=== PATIENT | male | born 1995 | race African-American/Black ===

== ENCOUNTER 2017-01-26 17:15 | Emergency (ER) | payer SELFPAY ==
[2017-01-26] MEDS ORDERED: KETOROLAC TROMETHAMINE 60 MG/2 ML SDV IM ONE (17:56)
[2017-01-26] MEDS ORDERED: DIPHENHYDRAMINE HCL 50 MG/ML VIAL IM ONE (17:56)
[2017-01-26] MEDS ORDERED: METOCLOPRAMIDE HCL INJ/PF 10 MG/2 ML SDV IM ONE (17:56)
--- NOTE | 2017-01-26 18:02 | ER Document Report ---
ED Headache - General Chief Complaint: Headache Stated Complaint: BODY ACHES/HEADACHE Mode of Arrival: Ambulatory Information source: Patient TRAVEL OUTSIDE OF THE [place] IN LAST 30 DAYS: No - HPI Patient complains to provider of: Headache Notes: Patient arrives with complaints of intermittent headache for the last 3-4 days. Patient states that he gets headaches often. This feels like his typical headaches. Complains of a moderate headache at this time. He denies any recent head injuries. He denies any blood thinners. He denies any blurred or loss vision. No fever. No neck stiffness. Does complain of some mild photophobia as well as some nausea and vomiting over the last few days intermittently as well. He denies any IV drug use. Complains of some mild generalized body aches at times as well. Patient has a known history of hypertension. He states that he was on blood pressure medication in the past, he cannot member when he was taking, but has not seen a family doctor and is currently on no blood pressure medication at this time. He denies any shortness of breath. Denies any other complaints at this time. - Related Data Allergies/Adverse Reactions: No Known Allergies Allergy (Verified 01/26/17 17:34) Past Medical History - Social History Smoking Status: Never Smoker Chew tobacco use (# tins/day): No Frequency of alcohol use: Social Drug Abuse: None Family History: Reviewed & Not Pertinent Patient has suicidal ideation: No Patient has homicidal ideation: No - Past Medical History Cardiac Medical History: Reports: Hx Hypertension Neurological Medical History: Reports: Hx Migraine Renal/ Medical History: Denies: Hx Peritoneal Dialysis Review of Systems - Review of Systems -: Yes All other systems reviewed and negative Physical Exam - Vital signs Vitals: Temp Pulse Resp BP Pulse Ox 98.3 F 77 18 153/79 H 99 01/26/17 17:34 01/26/17 17:34 01/26/17 17:34 01/26/17 17:34 01/26/17 17:34 - Notes Notes: GENERAL: alert, cooperative, nontoxic, no distress. HEAD: normocephalic, atraumatic EYES: conjunctiva pink without discharge, no external redness or swelling. Pupils are equal, round, reactive to light. EARS: no external swelling, no external redness NOSE: atraumatic, no external swelling MOUTH/THROAT: mucous membranes moist and pink, posterior pharynx without erythema, swelling, exudate. No trismus or drooling. NECK: soft, supple, full range of motion, no meningismus. CHEST: no distress, lungs clear and equal throughout. No wheezing, rales, rhonchi. CARDIAC: regular rate and rhythm, no murmur, normal capillary refill, normal pulses. No peripheral edema noted. BACK: full range of motion, no CVA tenderness. EXTREMITIES: full range of motion of all extremities. No redness, no swelling. NEURO: alert and oriented &O-3, cranial nerves II through XII are grossly intact. Upper and lower extremities are equal throughout. Normal sensation. No focal deficits, full range of motion of all extremitiesx Normal finger to nose. Decreased ability to raise his right eyebrow due to prior injury and scar. PYSCH: appropriate mood, affect. Patient is cooperative. SKIN: pink, warm, dry, no rash. Course - Re-evaluation Re-evalutation: 01/26/17 18:00 Patient nontoxic appearing with stable vitals. Patient doesn't have mild hypertension at this time. I discussed the importance of getting established with a primary care physician in order to get restarted on blood pressure medication and to monitor his blood pressure. This certainly could be the source of his intermittent headaches. His headaches are intermittent, denies any injury, is on no blood thinners, has a normal neurological exam, no fever, no signs of meningitis. Does not sudden onset thunderclap type headache. No sign or risk of epidural abscess/bleed. Patient will be given a shot of Toradol , Reglan, Benadryl and emergency department and discharged home with instructions to get established with primary care at the next label appointment in order to get his blood pressure under control. Patient verbalized understanding of this will be discharged. 01/26/17 18:01 The patient is noted to have elevated blood pressure during today's emergency department visit. The patient was informed of this finding. The patient was instructed that this may be related to pre-hypertension and requires further evaluation with a primary care provider. The patient has no hypertensive symptoms at this time. The patient's emergency department workup and current diagnosis were explained to the patient and or family. Follow-up instructions were provided. Medications if prescribed were discussed. Instructions for when to return to the emergency department including specific worrisome symptoms were discussed with the patient and/or family. - Vital Signs Vital signs: Temp Pulse Resp BP Pulse Ox 98.3 F 77 18 153/79 H 99 01/26/17 17:34 01/26/17 17:34 01/26/17 17:34 01/26/17 17:34 01/26/17 17:34 Discharge - Discharge Clinical Impression: Headache Qualifiers: Headache type: unspecified Headache chronicity pattern: episodic headache Intractability: not intractable Qualified Code(s): R51 - Headache Hypertension Qualifiers: Hypertension type: essential hypertension Qualified Code(s): I10 - Essential ( primary) hypertension Condition: Stable Disposition: HOME, SELF-CARE Instructions: Headache ([facility]) Additional Instructions: Take medications as prescribed. We need to get established with her primary care physician order to get her blood pressure under control. Follow-up for increased pain, fever, neck stiffness, persistent vomiting, numbness, tingling, weakness and once on her body compared to the other, or any further concerns. Prescriptions: Diclofenac Sodium [Voltaren] 75 mg PO BID #20 tablet.dr Forms: Elevated Blood Pressure
[2017-01-26 18:31] VITALS: BP 162/82
== END 2017-01-26 18:31 | disposition home or self-care (01) ==
LOC: ER 17:15
DX: R51 Headache (principal); I10 Essential (primary) hypertension; R52 Pain, unspecified; H53.149 Visual discomfort, unspecified
CPT/HCPCS: 99283; 96372; J1200; J1885; J2765

== ENCOUNTER 2017-09-06 17:49 | Emergency (ER) | payer SELFPAY ==
[2017-09-06 18:16] VITALS: BP 164/78
[2017-09-06] MEDS ORDERED: TETRACAINE HCL 0.5% OPH SOLN 2 ML OU ONE (20:13)
--- NOTE | 2017-09-06 20:14 | ER Document Report ---
HPI - HPI Patient complains to provider of: eye pain Onset: Last week Onset/Duration: Gradual Quality of pain: Sharp Pain Level: 4 Context: Patient complains of pinkeye for the past week that he has been treating with [id number] drops. Patient states that his right eye started to become painful yesterday. Patient complains of light sensitivity. Patient states whenever he wakes up in the morning his eyes are matted. Associated Symptoms: Other - Bilateral eye drainage, right eye pain Exacerbated by: Denies Relieved by: Denies Similar symptoms previously: No Recently seen / treated by doctor: No - ROS ROS below otherwise negative: Yes Systems Reviewed and Negative: Yes All other systems reviewed and negative - CONSTITUTIONAL Constitutional: DENIES: Fever - EENT EENT: REPORTS: Eye problems - GASTROINTESTINAL Gastrointestinal: DENIES: Nausea - DERM Skin Problems: None Past Medical History - General Information source: Patient - Social History Smoking Status: Current Every Day Smoker Frequency of alcohol use: None Drug Abuse: None Occupation: [employer] Lives with: Family Family History: Reviewed & Not Pertinent - Past Medical History Cardiac Medical History: Reports: Hx Hypertension Neurological Medical History: Reports: Hx Migraine Renal/ Medical History: Denies: Hx Peritoneal Dialysis Surgical Hx: Negative Vertical Provider Document - CONSTITUTIONAL Agree With Documented VS: Yes Exam Limitations: No Limitations General Appearance: WD/WN, No Apparent Distress - INFECTION CONTROL TRAVEL OUTSIDE OF THE [place] IN LAST 30 DAYS: No - HEENT HEENT: Atraumatic, Normocephalic - NECK Neck: Normal Inspection - RESPIRATORY Respiratory: No Respiratory Distress O2 Sat by Pulse Oximetry: 99 - MUSCULOSKELETAL/EXTREMETIES Musculoskeletal/Extremeties: MAEW - NEURO Level of Consciousness: Awake, Alert, Appropriate Motor/Sensory: No Motor Deficit - DERM Integumentary: Warm, Dry, No Rash Course - Re-evaluation Re-evalutation: 09/06/17 21:[address] Branch regarding patient presentation. Recommends administering antibiotic eyedrops and having patient follow up in the office tomorrow morning for recheck. - Vital Signs Vital signs: Temp Pulse Resp BP Pulse Ox 98.6 F 66 20 164/78 H 99 09/06/17 18:14 09/06/17 18:14 09/06/17 18:14 09/06/17 18:14 09/06/17 18:14 Procedures - Eye Procedure Right Fluorescein applied: Bilateral Antibiotic Oinment/Drps Admin: Both eyes Notes: 09/06/17 21:18 Patient with multiple small less than 1 mm areas of fluorescein uptake concerning for developing corneal ulcers Eyes picture: 1 - 2 mm corneal ulcer Discharge - Discharge Clinical Impression: Elevated blood pressure reading Conjunctivitis Qualifiers: Conjunctivitis type: unspecified Laterality: bilateral Qualified Code(s): H10.9 - Unspecified conjunctivitis Cornea ulcer Qualifiers: Laterality: right Qualified Code(s): H16.001 - Unspecified corneal ulcer, right eye Condition: Stable Disposition: HOME, SELF-CARE Instructions: Antibiotic Therapy ([facility]), Conjunctivitis ([facility]), Corneal Ulceration ([facility]), Eyedrop Use ([facility]) Additional Instructions: Return immediately for any new or worsening symptoms Followup with Dr. Branch in the office tomorrow. Call the office at 9 AM for an appointment time. Let them know that Dr. Branch did want to see you in the office for further evaluation. Besivance, instill 1 drop to bilat eyes every 8 hours. Forms: Elevated Blood Pressure, Return to Work Referrals: [facility] [Provider Group] - Follow up tomorrow
[2017-09-06] MEDS ORDERED: BESIFLOXACIN HCL 0.6% OPH SUSP 5 ML BOTTLE OU ONE (21:17)
== END 2017-09-06 21:29 | disposition home or self-care (01) ==
LOC: ER 17:49
DX: H16.001 Unspecified corneal ulcer, right eye (principal); H10.9 Unspecified conjunctivitis; I10 Essential (primary) hypertension; F17.200 Nicotine dependence, unspecified, uncomplicated
CPT/HCPCS: 99283

== ENCOUNTER 2018-07-21 09:09 | Emergency (ER) | payer SELFPAY ==
[2018-07-21 09:15] VITALS: BP 165/90
[2018-07-21] MEDS ORDERED: IBUPROFEN 600 MG TABLET PO ONE (09:35)
[2018-07-21] MEDS ORDERED: PENICILLIN V POTASSIUM 500 MG TABLET PO ONE (09:35)
[2018-07-21] MEDS ORDERED: HYDROCODONE/ACETAMINOPHEN 5-325 MG TABLET PO ONE (09:35)
--- NOTE | 2018-07-21 09:41 | ER Document Report ---
HPI - HPI Pain Level: 3 Notes: Patient is a 23-year-old male who presents with chief complaint of left upper tooth pain. Patient reports this is been going on for approximately 1 week. Patient also reports headaches intermittently over the last month to 2 months. Patient states he has a history of hypertension however he is not been on any medication for several years, he thinks his blood pressure is elevated today. Blood pressure at triage was 165/90. Repeat blood pressure at the bedside was 158/89. Patient is unsure what type of blood pressure medicine he is to take. Patient denies any fevers. Past Medical History - General Information source: Patient - Social History Smoking Status: Never Smoker Frequency of alcohol use: None Drug Abuse: None Family History: Reviewed & Not Pertinent - Past Medical History Cardiac Medical History: Reports: Hx Hypertension Neurological Medical History: Reports: Hx Migraine Renal/ Medical History: Denies: Hx Peritoneal Dialysis Vertical Provider Document - CONSTITUTIONAL Notes: PHYSICAL EXAMINATION: GENERAL: Well-appearing, well-nourished and in no acute distress. HEAD: Atraumatic, normocephalic. EYES: Pupils equal round extraocular movements intact, conjunctiva are normal. ENT: Nares patent, swelling noted to left upper jawline, no drainable abscess identified. NECK: Normal range of motion LUNGS: No respiratory distress Musculoskeletal: Normal range of motion NEUROLOGICAL: Normal speech, normal gait. PSYCH: Normal mood, normal affect. SKIN: Warm, Dry, normal turgor, no rashes or lesions noted. - INFECTION CONTROL TRAVEL OUTSIDE OF THE [place] IN LAST 30 DAYS: No Course - Re-evaluation Re-evalutation: 07/21/18 09:37 Physical examination consistent with dental infection. Patient's blood pressure on recheck is 158/89. Patient will be given information on both the [facility]. Discussed the importance of patient establishing care with a primary care provider so that he can start an antihypertensive. Patient verbalizes understanding of same. - Vital Signs Vital signs: Temp Pulse Resp BP Pulse Ox 97.8 F 66 20 165/90 H 97 07/21/18 09:14 07/21/18 09:14 07/21/18 09:14 07/21/18 09:14 07/21/18 09:14 Discharge - Discharge Clinical Impression: Toothache Hypertension Qualifiers: Hypertension type: unspecified Qualified Code(s): I10 - Essential (primary) hypertension Condition: Stable Disposition: HOME, SELF-CARE Additional Instructions: TOOTHACHE: Your pain is due to dental decay. The tooth must be repaired in order for you to feel better. You will, therefore, be referred to a dentist. We do not have dentists on the staff at [facility]. Severe swelling or drainage around a tooth usually means a dental abscess. This also requires evaluation and treatment by the dentist, but antibiotics may be prescribed while awaiting dental treatment. You should be rechecked immediately if you develop major swelling of the face, increasing pain, a lump in the jaw or gums, headache, difficulty swallowing, or fever. PENICILLIN V K: You have been given a prescription for Penicillin VK. Your physician has determined that this is the best antibiotic for your condition. Pen VK can be taken with meals, however more of the antibiotic gets into the bloodstream if it's taken on an empty stomach. Penicillin usually has no side effects. However, allergy to penicillins is common. If you have had an allergic reaction to any drug of the penicillin family, you should never take any other penicillin. Notify your doctor at once if you develop hives, itching, swelling, faintness, or shortness of breath. FOLLOW-UP CARE: You have been referred for follow-up care to the dentists listed below. Call the dentists office for an appointment as you were instructed or within the next two days. If you experience worsening or a significant change in your symptoms, notify the physician immediately or return to the Emergency Department at any time for re-evaluation. [facility] [address] [place] [address] Please take antibiotics as prescribed. Complete the antibiotics even if you are feeling better. Please take ibuprofen 600 mg every 6 hours for the next several days. This will help with not only P the pain but also the inflammation around your gumline. Please follow-up with the [facility], call them Monday morning to get an appointment. Let them know you are seen in the emergency department and placed on an antibiotic. Please also follow-up with either the [facility] for your high blood pressure. Try to limit your intake of salt. Return to the emergency department for any additional concerns. Prescriptions: Penicillin V Potassium [Penicillin Vk 500 mg Tablet] 500 mg PO BID #20 tablet Forms: Elevated Blood Pressure Referrals: [facility] [Provider Group] - Follow up as needed [facility] [Provider Group] - Follow up as needed
== END 2018-07-21 09:49 | disposition home or self-care (01) ==
LOC: ER 09:09
DX: K08.9 Disorder of teeth and supporting structures, unspecified (principal); I10 Essential (primary) hypertension
CPT/HCPCS: 99282

== ENCOUNTER 2018-08-23 11:24 | Emergency (ER) | payer SELFPAY ==
[2018-08-23] MEDS ORDERED: ACETAMINOPHEN 325 MG TABLET PO ONE (12:00)
[2018-08-23] MEDS ORDERED: IBUPROFEN 800 MG TABLET PO ONE (12:01)
[2018-08-23] MEDS ORDERED: PENICILLIN V POTASSIUM 500 MG TABLET PO ONE (12:01)
--- NOTE | 2018-08-23 12:06 | ER Document Report ---
ED Oral Problem - General Chief Complaint: Toothache Stated Complaint: TOOTH PAIN Time Seen by Provider: 08/23/18 11:50 Mode of Arrival: Ambulatory Information source: Patient Notes: 23-year-old male presents to ED for complaint of dental pain to the left upper jaw that has been present for a while. He was seen in the emergency room on for the same toothache. At that time his blood pressure was elevated higher than it is today. Patient is alert and oriented respirations regular and unlabored speaking in full sentences. He states he smokes about half a pack a day and has not been to the dentist since he was here. He states he only took a couple days of antibiotics last time and did not go to the dentist. TRAVEL OUTSIDE OF THE U[place] IN LAST 30 DAYS: No - HPI Patient complains to provider of: Toothache Onset: Other Onset: Gradual - Chronic Quality of pain: Sharp Severity: Moderate Pain Level: 3 Associated symptoms: Toothache Relieved by: Nothing Similar symptoms previously: Yes Recently seen / treated by doctor/dentist: Yes - Related Data Allergies/Adverse Reactions: No Known Allergies Allergy (Verified 08/23/18 11:25) Past Medical History - General Information source: Patient - Social History Smoking Status: Current Every Day Smoker Cigarette use (# per day): Yes - Half a pack a day Chew tobacco use (# tins/day): No Smoking Education Provided: Yes - 4 minutes Frequency of alcohol use: Rare Drug Abuse: None Occupation: [employer] Lives with: Family Family History: Reviewed & Not Pertinent Patient has suicidal ideation: No Patient has homicidal ideation: No - Past Medical History Cardiac Medical History: Reports: Hx Hypertension Pulmonary Medical History: Reports: None EENT Medical History: Reports: None Neurological Medical History: Reports: Hx Migraine Endocrine Medical History: Reports: None Renal/ Medical History: Reports: None Malignancy Medical History: Reports None GI Medical History: Reports: None Musculoskeletal Medical History: Reports Hx Musculoskeletal Trauma Skin Medical History: Reports None Psychiatric Medical History: Reports: None Traumatic Medical History: Reports: Hx Fractures - Multiple facial fractures jaw fracture and right finger fracture Past Surgical History: Reports: Hx Orthopedic Surgery - Plate and screws repair of right side of face and jaw and finger reattached - Immunizations Immunizations up to date: Yes Review of Systems - Review of Systems Notes: REVIEW OF SYSTEMS: CONSTITUTIONAL : Denies fever, chills, or sweats. Denies recent illness. EENT: Denies eye, ear, throat pain or symptoms. Denies nasal or sinus congestion or discharge. Denies throat, tongue, or mouth swelling or difficulty swallowing. Complains of dental pain and swelling to the left upper jaw. He states it is been hurting for over a month and has not been to the dentist. He came to the emergency room on 07/21/2018 and did not complete his antibiotics or go to the dentist. CARDIOVASCULAR: Denies chest pain. Denies palpitations or racing or irregular heart beat. Denies ankle edema. RESPIRATORY: Denies cough, cold, or chest congestion. Denies shortness of breath, difficulty breathing, or wheezing. GASTROINTESTINAL: Denies abdominal pain or distention. Denies nausea, vomiting , or diarrhea. Denies blood in vomitus, stools, or per rectum. Denies black, tarry stools. Denies constipation. GENITOURINARY: Denies difficulty urinating, painful urination, burning, frequency, blood in urine, or discharge. MUSCULOSKELETAL: Denies back or neck pain or stiffness. Denies joint pain or swelling. SKIN: Denies rash, lesions or sores. HEMATOLOGIC : Denies easy bruising or bleeding. LYMPHATIC: Denies swollen, enlarged glands. NEUROLOGICAL: Denies confusion or altered mental status. Denies passing out or loss of consciousness. Denies dizziness or lightheadedness. Denies headache. Denies weakness or paralysis or loss of use of either side. Denies problems with gait or speech. Denies sensory loss, numbness, or tingling. Denies seizures. PSYCHIATRIC: Denies anxiety or stress. Denies depression, suicidal ideation, or homicidal ideation. ALL OTHER SYSTEMS REVIEWED AND NEGATIVE. Dictation was performed using [employer] voice recognition software PHYSICAL EXAMINATION: GENERAL: Well-appearing, well-nourished and in no acute distress. HEAD: Atraumatic, normocephalic. EYES: Pupils equal round and reactive to light, extraocular movements intact, sclera anicteric, conjunctiva are normal. ENT: Nares patent, oropharynx clear without exudates. Moist mucous membranes. Tenderness to the left upper jaw no mild erythema and gingivitis, no ulcers, and no abscesses NECK: Normal range of motion, supple without lymphadenopathy LUNGS: Breath sounds clear to auscultation bilaterally and equal. No wheezes rales or rhonchi. HEART: Regular rate and rhythm without murmurs ABDOMEN: Soft, nontender, nondistended abdomen. No guarding, no rebound. No masses appreciated. Musculoskeletal: Normal range of motion, no pitting or edema. No cyanosis. NEUROLOGICAL: Cranial nerves grossly intact. Normal speech, normal gait. Normal sensory, motor exams PSYCH: Normal mood, normal affect. SKIN: Warm, Dry, normal turgor, no rashes or lesions noted. Physical Exam - Vital signs Vitals: Temp Pulse Resp BP Pulse Ox 97.9 F 78 24 H 160/88 H 98 08/23/18 11:29 08/23/18 11:29 08/23/18 11:29 08/23/18 11:08/23/18 11:29 Course - Re-evaluation Re-evalutation: 08/23/18 12:09 Patient treated with ibuprofen Tylenol and penicillin VK. Patient was instructed to follow-up with a dentist as soon as possible. Presentation is most consistent with likely an infected tooth. Airway is patent. Vitals within normal limits. Patient is able swallow without any difficulty. There is no significant facial swelling. No evidence of Tre angina, apical abscess , or airway obstruction. Patient will be started on antibiotics. I've instructed to follow-up with dentistry as earliest ability for definitive management. At this time will discharge with return precautions and follow-up recommendations. Verbal discharge instructions given a the bedside and opportunity for questions given. Medication warnings reviewed. Patient is in agreement with this plan and has verbalized understanding of return precautions and the need for primary care follow-up in the next 24-72 hours. - Vital Signs Vital signs: Temp Pulse Resp BP Pulse Ox 97.9 F 69 24 H 149/80 H 98 08/23/18 11:29 08/23/18 12:07 08/23/18 11:29 08/23/18 12:07 08/23/18 11:29 Discharge - Discharge Clinical Impression: Pain due to dental caries Condition: Stable Disposition: HOME, SELF-CARE Instructions: [facility], Family Physicians / Practices Additional Instructions: TOOTHACHE: Your pain is due to dental decay. The tooth must be repaired in order for you to feel better. You will, therefore, be referred to a dentist. We do not have dentists on the staff at [facility]. Severe swelling or drainage around a tooth usually means a dental abscess. This also requires evaluation and treatment by the dentist, but antibiotics may be prescribed while awaiting dental treatment. You should be rechecked immediately if you develop major swelling of the face, increasing pain, a lump in the jaw or gums, headache, difficulty swallowing, or fever. PENICILLIN V K: You have been given a prescription for Penicillin VK. Your physician has determined that this is the best antibiotic for your condition. Pen VK can be taken with meals, however more of the antibiotic gets into the bloodstream if it's taken on an empty stomach. Penicillin usually has no side effects. However, allergy to penicillins is common. If you have had an allergic reaction to any drug of the penicillin family, you should never take any other penicillin. Notify your doctor at once if you develop hives, itching, swelling, faintness, or shortness of breath. FOLLOW-UP CARE: You have been referred for follow-up care to the dentists listed below. Call the dentists office for an appointment as you were instructed or within the next two days. If you experience worsening or a significant change in your symptoms, notify the physician immediately or return to the Emergency Department at any time for re-evaluation. [facility] [address] [place], [place] [phone] [facility] [address] [place] [address] [facility] [address] [facility] [address] [facility] [address] Doctor[address] [facility] [email or web address] [facility] [address] [place] [address] Monday- 8:00am to 5:00 pm Will see patients from other [facility]. Charges based on income and family size and accepts Medicare, Medicaid, and Insurances Will pull molars [facility] Student Clinics [facility] [address] Hours of Operation 8:00 am - 4:30 pm weekdays The following dental offices accept Medicaid: [facility] Dr. Benson Dr. Sewell Dr. Cho Dr. Long Ravi Lopez, Debbie, and Rodolfo oral surgery Dr. Russell ([place]) Dr. Wilson ([place]) [facility] Drs. Miranda and Ameya ([place]) Dr. Coleman ([place]) [facility] Dr. Yu ([place]) Drs. Mcdaniel and ([place]) Medicaid Care Line Prescriptions: Penicillin V Potassium [Penicillin Vk 500 mg Tablet] 500 mg PO BID #20 tablet Forms: Elevated Blood Pressure, Smoking Cessation Education, Return to Work
[2018-08-23 12:09] VITALS: BP 149/80
== END 2018-08-23 12:11 | disposition home or self-care (01) ==
LOC: ER 11:24
DX: K02.9 Dental caries, unspecified (principal); K08.89 Other specified disorders of teeth and supporting structures; R22.0 Localized swelling, mass and lump, head; I10 Essential (primary) hypertension; F17.210 Nicotine dependence, cigarettes, uncomplicated; Z71.6 Tobacco abuse counseling
CPT/HCPCS: 99283; 99406

== ENCOUNTER 2018-12-19 12:30 | Emergency (ER) | payer SELFPAY ==
[2018-12-19 12:48] VITALS: BP 183/99
[2018-12-19] MEDS ORDERED: HYDROCODONE/ACETAMINOPHEN 5-325 MG TABLET PO ONE (12:48)
[2018-12-19] MEDS ORDERED: PENICILLIN V POTASSIUM 500 MG TABLET PO ONE (12:48)
--- NOTE | 2018-12-19 12:52 | ER Document Report ---
ED Oral Problem - General Chief Complaint: Toothache Stated Complaint: TOOTH PAIN Time Seen by Provider: 12/19/18 12:46 Mode of Arrival: Ambulatory Information source: Patient Notes: 23-year-old male presents to ED for complaint of dental pain on and off for about a year. He states he does not have a dentist and has not been to the dentist recently. He states that the pain became much worse about 2 days ago. Patient is alert oriented respirations regular and unlabored speaking in full s entences walks with a even steady gait. Patient is going to receive penicillin VK and a Argenta while in the emergency room and get a prescription for penicillin VK. He has been instructed to follow-up with a dentist. His left to go get the children from daycare and will come back and at that time he will get his Argenta. Patient has elevated blood pressure states he has had high blood pressure but does not follow-up with her primary care doctor to take his medicines. He has been instructed that he needs to follow-up promptly and get on blood pressure medicine for this elevated blood pressure. TRAVEL OUTSIDE OF THE [place] IN LAST 30 DAYS: No - HPI Patient complains to provider of: Toothache Onset: Other - On and off for a year worse for the last 2 days Onset: Gradual Quality of pain: Sharp, Throbbing Severity: Moderate Pain Level: 2 Associated symptoms: Toothache Worsened by: Cold Relieved by: Nothing Similar symptoms previously: Yes Recently seen / treated by doctor/dentist: No - Related Data Allergies/Adverse Reactions: No Known Allergies Allergy (Verified 12/19/18 12:32) Past Medical History - General Information source: Patient - Social History Smoking Status: Current Every Day Smoker Cigarette use (# per day): Yes - 3 cigarettes a day Chew tobacco use (# tins/day): No Smoking Education Provided: Yes - 4 minutes Frequency of alcohol use: None Drug Abuse: None, Other - His clothes smelled like marijuana but he states he does not smoke it Occupation: [employer] Lives with: Family Family History: Reviewed & Not Pertinent Patient has suicidal ideation: No Patient has homicidal ideation: No - Past Medical History Cardiac Medical History: Reports: Hx Hypertension Pulmonary Medical History: Reports: None EENT Medical History: Reports: None Neurological Medical History: Reports: Hx Migraine Endocrine Medical History: Reports: None Renal/ Medical History: Reports: None Malignancy Medical History: Reports None GI Medical History: Reports: None Musculoskeletal Medical History: Reports Hx Musculoskeletal Trauma Skin Medical History: Reports None Psychiatric Medical History: Reports: None Traumatic Medical History: Reports: Hx Fractures - Multiple facial fractures jaw fracture and right index finger fracture Infectious Medical History: Reports: None Past Surgical History: Reports: Hx Orthopedic Surgery - Plate and screws repair of right side of face and jaw and finger reattached - Immunizations Immunizations up to date: Yes Hx Diphtheria, Pertussis, Tetanus Vaccination: Yes Review of Systems - Review of Systems Constitutional: No symptoms reported EENT: Mouth pain, Dental problem Cardiovascular: No symptoms reported Respiratory: No symptoms reported Gastrointestinal: No symptoms reported Genitourinary: No symptoms reported Male Genitourinary: No symptoms reported Musculoskeletal: No symptoms reported Skin: No symptoms reported Hematologic/Lymphatic: No symptoms reported Neurological/Psychological: No symptoms reported -: Yes All other systems reviewed and negative Physical Exam - Vital signs Vitals: Temp Pulse Resp BP Pulse Ox 98.1 F 57 L 18 183/99 H 99 12/19/18 12:47 12/19/18 12:47 12/19/18 12:47 12/19/18 12:47 12/19/18 12:47 Interpretation: Normal - General General appearance: Appears well, Alert - HEENT Head: Normocephalic, Atraumatic Eyes: Normal Pupils: PERRL Ears: Normal External canal: Normal Tympanic membrane: Normal Sinus: Normal Nasal: Normal Mouth/Lips: Caries Mucous membranes: Normal Teeth diagram: 1 - Tenderness to these 3 teeth with cavity on #15 2 - Extra tooth noted with mild swelling around the extra tooth Pharynx: Normal Neck: Anterior cervical chain - Respiratory Respiratory status: No respiratory distress Chest status: Nontender Breath sounds: Normal Chest palpation: Normal - Cardiovascular Rhythm: Regular Heart sounds: Normal auscultation Murmur: No - Abdominal Inspection: Normal Distension: No distension Bowel sounds: Normal Tenderness: Nontender Organomegaly: No organomegaly - Back Back: Normal, Nontender - Extremities General upper extremity: Normal inspection, Nontender, Normal color, Normal ROM, Normal temperature General lower extremity: Normal inspection, Nontender, Normal color, Normal ROM, Normal temperature, Normal weight bearing. No: Jessica's sign - Neurological Neuro grossly intact: Yes Cognition: Normal Orientation: AAOx4 Zia Coma Scale Eye Opening: Spontaneous Zia Coma Scale Verbal: Oriented [place] Coma Scale Motor: Obeys Commands Zia Coma Scale Total: 15 Speech: Normal Motor strength normal: LUE, RUE, LLE, RLE Sensory: Normal - Psychological Associated symptoms: Normal affect, Normal mood - Skin Skin Temperature: Warm Skin Moisture: Dry Skin Color: Normal Course - Re-evaluation Re-evalutation: 12/19/18 13:00 Presentation is most consistent with likely an infected tooth. Airway is patent. Vitals within normal limits. Patient is able swallow without any difficulty. There is no significant facial swelling. No evidence of Tre angina, apical abscess, or airway obstruction. Patient will be started on antibiotics. I've instructed to follow-up with dentistry as earliest ability for definitive management. At this time will discharge with return precautions and follow-up recommendations. Verbal discharge instructions given a the bedside and opportunity for questions given. Medication warnings reviewed. Patient is in agreement with this plan and has verbalized understanding of return precautions and the need for primary care follow-up in the next 24-72 hours. - Vital Signs Vital signs: Temp Pulse Resp BP Pulse Ox 98.1 F 57 L 18 183/99 H 99 12/19/18 12:47 12/19/18 12:47 12/19/18 12:47 12/19/18 12:47 12/19/18 12:47 Discharge - Discharge Clinical Impression: Pain due to dental caries Condition: Stable Disposition: HOME, SELF-CARE Additional Instructions: TOOTHACHE: Your pain is due to dental decay. The tooth must be repaired in order for you to feel better. You will, therefore, be referred to a dentist. We do not have dentists on the staff at [facility]. Severe swelling or drainage around a tooth usually means a dental abscess. This also requires evaluation and treatment by the dentist, but antibiotics may be prescribed while awaiting dental treatment. You should be rechecked immediately if you develop major swelling of the face, increasing pain, a lump in the jaw or gums, headache, difficulty swallowing, or fever. ORAL NARCOTIC MEDICATION: You have been given a Argenta for pain control. This medication is a narcotic. It's best taken with food, as nausea can result if taken on an empty stomach. Don't operate machinery or drive within six hours of taking this medication. Do not combine this medicine with alcohol, or with any medication which can cause sedation (such as cold tablets or sleeping pills) unless you get permission from the physician. Narcotics tend to cause constipation. If possible, drink plenty of fluids and eat a diet high in fiber and fruits. Please be aware that prescription narcotics also have the potential for abuse. People become addicted to these medications because of the general sense of wellbeing that they induce. This feeling along with a significant reduction in tension, anxiety, and aggression provides a stimulating seductive quality to these drugs. Once your pain is under control, we encourage you to discard your unused narcotics. PENICILLIN V K: You have been given a prescription for Penicillin VK. Your physician has determined that this is the best antibiotic for your condition. Pen VK can be taken with meals, however more of the antibiotic gets into the bloodstream if it's taken on an empty stomach. Penicillin usually has no side effects. However, allergy to penicillins is common. If you have had an allergic reaction to any drug of the penicillin family, you should never take any other penicillin. Notify your doctor at once if you develop hives, itching, swelling, faintness, or shortness of breath. FOLLOW-UP CARE: You have been referred for follow-up care to the dentists listed below. Call the dentists office for an appointment as you were instructed or within the next two days. If you experience worsening or a significant change in your symptoms, notify the physician immediately or return to the Emergency Department at any time for re-evaluation. [facility] [address] [place], [place] [facility] [address] [place] [address] [facility] [address] [facility] [address] [facility] [address] [facility].[address]. [place] [address] Doctor's [facility] [email or web address] [facility] [address] [place] [address] Monday- 8:00am to 5:00 pm Will see patients from other [facility]. Charges based on income and family size and accepts Medicare, Medicaid, and Insurances Will pull molars [facility]ics [facility] [id number] Hours of Operation 8:00 am - 4:30 pm weekdays The following dental offices accept Medicaid: [facility] Dr. Benson Dr. Sewell Dr. Cho Dr. Long Ravi Lopez, Debbie, and Rodolfo oral surgery Dr. Russell ([place]) Dr. Wilson ([place]) [facility] Drs. Miranda and Ameya ([place]) Dr. Coleman ([place]) [facility] Dr. Yu ([place]) Drs. Mcdaniel and ([place]) Medicaid Care Line Prescriptions: Penicillin V Potassium [Penicillin Vk 500 mg Tablet] 500 mg PO BID #20 tablet Forms: Elevated Blood Pressure, Smoking Cessation Education, Return to Work
== END 2018-12-19 13:15 | disposition home or self-care (01) ==
LOC: ER 12:30
DX: K02.9 Dental caries, unspecified (principal); K08.89 Other specified disorders of teeth and supporting structures; I10 Essential (primary) hypertension; F17.210 Nicotine dependence, cigarettes, uncomplicated; Z71.6 Tobacco abuse counseling
CPT/HCPCS: 99282; 99406

== ENCOUNTER 2019-06-11 21:47 | Emergency (ER) | payer SELFPAY ==
--- NOTE | 2019-06-11 22:07 | ER Document Report ---
ED Medical Screen (RME) - General Chief Complaint: Headache Stated Complaint: HEADACHE Time Seen by Provider: 06/11/19 22:02 Mode of Arrival: Ambulatory Information source: Patient Notes: Patient is a 24-year-old male with past medical history of hypertension presenting with chief complaint of headache that began this morning right after he woke up. Patient reports he has not been on his medications for several years, he does not recall what he supposed to take for his blood pressure. He denies any history of headaches either but reports that this morning he had a sudden onset frontal headache with associated light sensitivity and dizziness. Exam: No focal neurological deficits noted. Patient speaking in full and complete sentences and is alert and oriented x4. Heart sounds S1-S2 present. I have greeted and performed a rapid initial assessment of this patient. A comprehensive ED assessment and evaluation of the patient, analysis of test results and completion of the medical decision making process will be conducted by additional ED providers. I have specifically instructed the patient or family members with the patient to immediately return to any nursing staff should anything change in the patient's condition or with their chief complaint. This medical record was dictated with voice recognizing software. There may be grammatical, syntax errors that are unintended. TRAVEL OUTSIDE OF THE [place] IN LAST 30 DAYS: No - Related Data Allergies/Adverse Reactions: No Known Allergies Allergy (Verified 06/11/19 21:52) Past Medical History - Past Medical History Cardiac Medical History: Reports: Hx Hypertension Neurological Medical History: Reports: Hx Migraine Renal/ Medical History: Denies: Hx Peritoneal Dialysis Musculoskeltal Medical History: Reports Hx Musculoskeletal Trauma Traumatic Medical History: Reports: Hx Fractures - Multiple facial fractures jaw fracture and right index finger fracture Past Surgical History: Reports: Hx Orthopedic Surgery - Plate and screws repair of right side of face and jaw and finger reattached - Immunizations Immunizations up to date: Yes Hx Diphtheria, Pertussis, Tetanus Vaccination: Yes Physical Exam - Vital signs Vitals: Temp Pulse Resp BP Pulse Ox 98.4 F 64 20 162/100 H 99 06/11/19 21:54 06/11/19 21:54 06/11/19 21:54 06/11/19 21:54 06/11/19 21:54 Course - Vital Signs Vital signs: Temp Pulse Resp BP Pulse Ox 98.4 F 64 20 162/100 H 99 06/11/19 21:54 06/11/19 21:54 06/11/19 21:54 06/11/19 21:54 06/11/19 21:54
[2019-06-11] MEDS: KETOROLAC TROMETHAMINE 60 MG/2 ML SDV IM ONE ×2 (22:26→22:28)
[2019-06-11 22:40] LABS: ABSOLUTE BASOPHILS # (AUTO) 0.1 10^3/uL (0.0-0.2); ABSOLUTE EOSINOPHILS # (AUTO) 0.2 10^3/uL (0.0-0.6); ABSOLUTE LYMPHOCYTES (AUTO) 2.8 10^3/uL (0.5-4.7); ABSOLUTE MONOCYTES (AUTO) 1.3 10^3/uL (0.1-1.4); ABSOLUTE NEUT (AUTO) 10.8 10^3/uL (1.7-8.2); BASOPHILS % (AUTO) 0.8 % (0-2); EOSINOPHILS % (AUTO) 1.4 % (0-6); HEMATOCRIT 48.2 % (37.9-51.0); HEMOGLOBIN 16.2 g/dL (13.5-17.0); LYMPHOCYTES % (AUTO) 18.6 % (13-45); MEAN CORPUSCULAR HEMOGLOBIN 28.5 pg (27.0-33.4); MEAN CORPUSCULAR HGB CONC 33.6 g/dL (32.0-36.0); MEAN CORPUSCULAR VOLUME 85 fl (80-97); MONOCYTES % (AUTO) 8.5 % (3-13); PLATELET COUNT 262 10^3/uL (150-450); RED BLOOD COUNT 5.69 10^6/uL (4.35-5.55); RED CELL DISTRIBUTION WIDTH 14.5 % (11.5-14.0); SEGMENTED NEUTROPHILS % (AUTO) 70.7 % (42-78); TOTAL CELLS COUNTED % (AUTO) 100 %; WHITE BLOOD COUNT 15.3 10^3/uL (4.0-10.5)
[2019-06-11 22:58] LABS: ALBUMIN 4.6 g/dL (3.5-5.0); ALKALINE PHOSPHATASE 72 U/L (38-126); ANION GAP 10 (5-19); ASPARTATE AMINO TRANSFERASE 27 U/L (17-59); BILIRUBIN,DIRECT 0.1 mg/dL (0.0-0.4); BILIRUBIN,TOTAL 0.6 mg/dL (0.2-1.3); BLOOD UREA NITROGEN 12 mg/dL (7-20); CALCIUM 10.2 mg/dL (8.4-10.2); CARBON DIOXIDE 28 mmol/L (22-30); CHLORIDE 102 mmol/L (98-107); GLUCOSE 93 mg/dL (75-110); POTASSIUM 4.5 mmol/L (3.6-5.0); TOTAL PROTEIN 7.5 g/dL (6.3-8.2)
[2019-06-11] MEDS ORDERED: IBUPROFEN 600 MG TABLET PO ONE (23:05)
[2019-06-11] MEDS ORDERED: DIPHENHYDRAMINE HCL 50 MG CAPSULE PO ONE (23:05)
[2019-06-11] MEDS ORDERED: METOCLOPRAMIDE HCL 10 MG TABLET PO ONE (23:05)
--- NOTE | 2019-06-11 23:06 | ER Document Report ---
ED General - General Chief Complaint: Headache Stated Complaint: HEADACHE Time Seen by Provider: 06/11/19 22:02 Mode of Arrival: Ambulatory Notes: 24-year-old male presents with headache. Gradual onset this morning frontal. Not throbbing. No photophobia. No neck pain. No fever. Had cold sweats this morning now resolved. Has not taken anything. Seen at triage and offered Toradol but refused. History of hypertension and says "they told me I did not have anymore because he lost all the weight." Not currently taking meds for hypertension. No unilateral neuro symptoms. No chest pain. TRAVEL OUTSIDE OF THE [place] IN LAST 30 DAYS: No - Related Data Allergies/Adverse Reactions: No Known Allergies Allergy (Verified 06/11/19 21:52) Past Medical History - General Information source: Patient - Social History Smoking Status: Current Every Day Smoker Chew tobacco use (# tins/day): No Frequency of alcohol use: None Drug Abuse: None Family History: Reviewed & Not Pertinent Patient has suicidal ideation: No Patient has homicidal ideation: No - Past Medical History Cardiac Medical History: Reports: Hx Hypertension Neurological Medical History: Reports: Hx Migraine Renal/ Medical History: Denies: Hx Peritoneal Dialysis Musculoskeletal Medical History: Reports Hx Musculoskeletal Trauma Traumatic Medical History: Reports: Hx Fractures - Multiple facial fractures jaw fracture and right index finger fracture Past Surgical History: Reports: Hx Orthopedic Surgery - Plate and screws repair of right side of face and jaw and finger reattached - Immunizations Immunizations up to date: Yes Hx Diphtheria, Pertussis, Tetanus Vaccination: Yes Review of Systems - Review of Systems Notes: REVIEW OF SYSTEMS GEN: Denies fever, chills, weight loss ENT: Denies sore throat, nasal discharge, ear pain EYES: Denies blurry vision, eye pain, discharge CV: Denies chest pain, palpitations, edema RESP: Denies cough, shortness of breath, wheezing GI: Denies abdominal pain, nausea, vomiting, diarrhea MSK: Denies joint pain/swelling, edema, SKIN: Denies rash, skin lesions LYMPH: Denies swollen glands/lymph nodes NEURO: See HPI PSYCH: Denies depression, suicidal or homicidal ideation PHYSICAL EXAMINATION General: No acute distress, well-nourished Head: Atraumatic, normocephalic ENT: Mouth normal, oropharynx moist, no exudates or tonsillar enlargement. No sinus tenderness. Eyes: Conjunctiva normal, pupils equal, lids normal Neck: No JVD, supple, no guarding CVS: Normal rate, regular rhythm, no murmurs Resp: No resp distress, equal and normal breath sounds bilaterally GI: Nondistended, soft, no tenderness to palpation, no rebound or guarding Ext: No deformities, no edema, normal range of motion in upper and lower ext Back: No CVA or midline TTP Skin: No rash, warm Lymphatic: No lymphadeopathy noted Neuro: Awake, alert. Face symmetric. GCS 15. Normal cranial nerves. Normal strength and sensation in all 4 extremity's. Physical Exam - Vital signs Vitals: Temp Pulse Resp BP Pulse Ox 98.4 F 64 20 162/100 H 99 06/11/19 21:54 06/11/19 21:54 06/11/19 21:54 06/11/19 21:54 06/11/19 21:54 Course - Re-evaluation Re-evalutation: 06/11/19 23:15 Young male with hypertension presents with headache and hypertension. He has no meningismus no fever but did have cold sweats at home. I do not suspect meningitis, stroke, or brain hemorrhage. He got labs ordered at [facility] show mild leukocytosis. Could be URI. No sinus tenderness to suggest need for antibiotics. He is slightly hypertensive here. We discussed his recurrent hypertension, the need for primary care follow-up, he was given headache medication orally given he is refusing injections. He will be discharged home in stable condition and will follow up with primary care. I have discussed with the patient there likely diagnosis, aftercare plan, follow- up plans and my usual and customary return precautions. They verbalized understanding of this. - Vital Signs Vital signs: Temp Pulse Resp BP Pulse Ox 98.4 F 64 20 162/100 H 99 06/11/19 21:54 06/11/19 21:54 06/11/19 21:54 06/11/19 21:54 06/11/19 21:54 - Laboratory Result Diagrams: 06/11/19 22:21 06/11/19 22:21 Laboratory results interpreted by me: 06/11/19 22:21 WBC 15.3 H RBC 5.69 H RDW 14.5 H Absolute Neuts (auto) 10.8 H Discharge - Discharge Clinical Impression: Tension type headache, unspecified Qualifiers: Headache chronicity pattern: acute headache Intractability: not intractable Qualified Code(s): G44.209 - Tension-type headache, unspecified, not intractable Condition: Good Disposition: HOME, SELF-CARE Instructions: Headache ([facility]) Additional Instructions: Your high blood pressure might have come backI think you to follow-up with a primary care doctor within 1 week to recheck her blood pressure because it may be a cause of your headache. Forms: Elevated Blood Pressure
[2019-06-11 23:25] VITALS: BP 168/96
== END 2019-06-11 23:23 | disposition home or self-care (01) ==
LOC: ER 21:47
DX: G44.209 Tension-type headache, unspecified, not intractable (principal); I10 Essential (primary) hypertension; R61 Generalized hyperhidrosis; D72.829 Elevated white blood cell count, unspecified; F17.200 Nicotine dependence, unspecified, uncomplicated
CPT/HCPCS: 36415; 80053; 85025; J1885

== ENCOUNTER 2019-06-12 18:42 | Emergency (ER) | payer OTHER ==
[2019-06-12] MEDS ORDERED: OXYCODONE-ACETAMINOPHEN 5-325 MG TABLET PO ONE (19:14)
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
--- NOTE | 2019-06-12 20:45 | RADIOLOGY REPORT (SQ) ---
5 VIEWS OF LUMBAR SPINE EXAM DATE: 06/12/2019 7:14 PM CDT HISTORY: Lower back pain. COMPARISON: None. FINDINGS: No acute compression fracture is seen. There is normal alignment without subluxation. The disc spaces are preserved. The sacroiliac joints are intact. No evidence of spondylolysis on the oblique views. IMPRESSION: No acute compression fracture of the lumbar spine is seen. However, please note that if there is point tenderness or high clinical concern, a CT scan is recommended.
[2019-06-12 20:54] VITALS: BP 165/92
== END 2019-06-12 21:36 | disposition home or self-care (01) ==
LOC: ER 18:42
DX: M54.5 Low back pain (principal); R51 Headache; M54.9 Dorsalgia, unspecified; V87.7XXA Person injured in collision between other specified motor vehicles (traffic), initial encounter; F17.200 Nicotine dependence, unspecified, uncomplicated; I10 Essential (primary) hypertension
CPT/HCPCS: 72070; 72110

== ENCOUNTER 2019-09-03 09:12 | Emergency (ER) | payer SELFPAY ==
[2019-09-03 09:41] VITALS: BP 161/106
--- NOTE | 2019-09-03 09:56 | ER Document Report ---
HPI - HPI Time Seen by Provider: 09/03/19 09:47 Pain Level: 3 Notes: Patient is a 24-year-old male no significant past medical history presents complaining of a dry cough that began this morning with an occasional wheeze. Patient does admit to smoking cigarettes. Patient is here primarily for a work note. He is otherwise eating and drinking without difficulty. He is urinating normally. Denies drug allergies. No other recent illness. Patient also states that he has had a bump to his heel has been there for 2 months that does get a little painful and callused. Denies any headache, fever, neck pain, URI, sore throat, chest pain, palpitations, syncope, shortness of breath, dyspnea, abdominal pain, nausea/vomiting/diarrhea, urinary retention, dysuria, hematuria, loss of control of bowel or bladder, numbness/tingling, saddle anesthesia, muscle paralysis/weakness, or rash. - ROS Systems Reviewed and Negative: Yes All other systems reviewed and negative - REPRODUCTIVE Reproductive: DENIES: : Past Medical History - Social History Smoking Status: Current Every Day Smoker Chew tobacco use (# tins/day): No Frequency of alcohol use: None Drug Abuse: Marijuana Family History: Reviewed & Not Pertinent Patient has suicidal ideation: No Patient has homicidal ideation: No - Past Medical History Cardiac Medical History: Reports: Hx Hypertension Neurological Medical History: Reports: Hx Migraine Renal/ Medical History: Denies: Hx Peritoneal Dialysis Musculoskeletal Medical History: Reports Hx Musculoskeletal Trauma Traumatic Medical History: Reports: Hx Fractures - Multiple facial fractures jaw fracture and right index finger fracture Past Surgical History: Reports: Hx Orthopedic Surgery - Plate and screws repair of right side of face and jaw and finger reattached - Immunizations Immunizations up to date: Yes Hx Diphtheria, Pertussis, Tetanus Vaccination: Yes Vertical Provider Document - CONSTITUTIONAL Agree With Documented VS: Yes Notes: PHYSICAL EXAMINATION: GENERAL: Well-appearing, well-nourished and in no acute distress. HEAD: Atraumatic, normocephalic. EYES: Pupils equal round and reactive to light, extraocular movements intact, sclera anicteric, conjunctiva are normal. ENT: EAC clear b/l. TM's intact b/l without erythema, fluid, or perforation. Nares patent and without discharge. oropharynx clear without exudates. No tonsilar hypertrophy or erythema. Moist mucous membranes. No sinus tenderness. NECK: Normal range of motion, supple without lymphadenopathy LUNGS: very scant wheeze rt lung on expiration only. no retractions. HEART: Regular rate and rhythm without murmurs, rubs, gallops. Musculoskeletal: FROM to passive/active. Strength 5+/5. Extremities: No cyanosis, clubbing, or edema b/l. Peripheral pulses 2+. Capillary refill less than 3 seconds. NEUROLOGICAL: Normal speech, normal gait. Normal sensory, motor exams PSYCH: Normal mood, normal affect. SKIN: there is a small plantar wart right heel. no erythema, warmth, or fluctuance. - INFECTION CONTROL TRAVEL OUTSIDE OF THE [place] IN LAST 30 DAYS: No Course - Re-evaluation Re-evalutation: 09/03/19 09:53 Patient is an afebrile, well-hydrated, 24-year-old male who presents with a cough that is suspect to be either viral versus very mild asthma. He also has a small plantar wart right heel. Vitals are acceptable without significant tachycardia, tachypnea, or hypoxia. PE is otherwise unremarkable. Patient is nontoxic-appearing and is tolerating p.o. without difficulty. No labs or imaging warranted at this time. Low suspicion for any ACS, PE, pneumothorax, pericarditis, dissection, respiratory compromise, severe dehydration, sepsis, meningitis, or other systemic emergent condition at this time. Patient is aware that condition can change from initial presentation and he needs to monitor symptoms closely and seek medical attention for any acute changes. I will send him home with a perception for an inhaler. Recommend conservative measures for symptoms. Recheck with your PCM in 3-5 days. Consider consult with a manager transplant. Return to the ED with any worsening/concerning symptoms otherwise as reviewed in discharge. Patient is in agreement. - Vital Signs Vital signs: Temp Pulse Resp BP Pulse Ox 98.0 F 94 16 161/106 H 95 09/03/19 09:40 09/03/19 09:40 09/03/19 09:40 09/03/19 09:40 09/03/19 09:40 Discharge - Discharge Clinical Impression: Cough, Plantar wart of right foot Condition: Stable Disposition: HOME, SELF-CARE Additional Instructions: He may use a pumice stone to decrease the amount of callus he will/suspected plantar wart area Maintain adequate fluid intake tylenol/ibuprofen as needed alternating every 3 hours for fever/body ache over the counter cold medication as needed for symptoms Humidified air may help Wash your hands regularly Wear a mask when coughing F/u: with your PCM in 3-5 days for a recheck Schedule consult with podiatry Return to the ED with any fever, altered mental status/behavior, chest pain, palpitations, syncope, headache, neck pain/stiffness, shortness of breath, chest pains, wheezing, drooling, trouble swallowing/breathing, abdominal pain, n/v/d, rash, or worsening/concerning symptoms otherwise. Prescriptions: Albuterol Sulfate [Proair HFA Inhalation Aerosol 8.5 gm MDI] 2 puff IH Q4H PRN #1 mdi PRN Reason: Forms: Elevated Blood Pressure, Smoking Cessation Education, Return to Work Referrals: BROOKE CABRAL DPM [ACTIVE STAFF] - Follow up as needed [facility] [Provider Group] - Follow up as needed
== END 2019-09-03 10:05 | disposition home or self-care (01) ==
LOC: ER 09:12
DX: B07.0 Plantar wart (principal); R05 Cough; R06.2 Wheezing; F17.210 Nicotine dependence, cigarettes, uncomplicated
CPT/HCPCS: 99281

== ENCOUNTER 2019-11-01 15:52 | Emergency (ER) | payer SELFPAY ==
[2019-11-01 16:11] VITALS: BP 155/87
== END 2019-11-01 17:54 | disposition left against medical advice (07) ==
LOC: ER 15:52
DX: Z53.21 Procedure and treatment not carried out due to patient leaving prior to being seen by health care provider (principal)

== ENCOUNTER 2019-11-20 09:52 | Emergency (ER) | payer SELFPAY ==
[2019-11-20] MEDS ORDERED: IBUPROFEN 800 MG TABLET PO ONE (10:15)
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
--- NOTE | 2019-11-20 11:31 | RADIOLOGY REPORT (SQ) ---
EXAM DESCRIPTION: FOOT RIGHT COMPLETE COMPLETED DATE/TIME: 11/20/2019 11:15 am REASON FOR STUDY: right heel pain COMPARISON: None. NUMBER OF VIEWS: Three views. TECHNIQUE: AP, lateral and oblique radiographic images acquired of the right foot. LIMITATIONS: None. FINDINGS: MINERALIZATION: Normal. BONES: No acute fracture or dislocation. No worrisome bone lesions. JOINTS: No effusions. SOFT TISSUES: No soft tissue swelling. No foreign body. OTHER: No other significant finding. IMPRESSION: NEGATIVE STUDY OF THE RIGHT FOOT. NO RADIOGRAPHIC EVIDENCE OF ACUTE INJURY. TECHNICAL DOCUMENTATION: JOB ID: [id number] 2010 [employer]- All Rights Reserved Reading location - IP/workstation name: [email or web address]
[2019-11-20 12:27] VITALS: BP 150/92
== END 2019-11-20 12:26 | disposition home or self-care (01) ==
LOC: ER 09:52
DX: M79.671 Pain in right foot (principal); I10 Essential (primary) hypertension; Z87.828 Personal history of other (healed) physical injury and trauma
CPT/HCPCS: 99283